=== PATIENT | female | born 1990 | race Caucasian/White ===

== ENCOUNTER 2016-12-22 13:52 | Inpatient (IN) | payer BC ==
[2016-12-22] MEDS ORDERED: SODIUM CHLORIDE 0.9% 1,000 ML IV STA ×2 (14:50)
--- NOTE | 2016-12-22 14:56 | ED ---
General Adult HPI - General Chief complaint: Abdominal Pain Stated complaint: Abnormal CT Time Seen by Provider: 12/22/16 14:21 Source: patient, RN notes reviewed, old records reviewed Mode of arrival: ambulatory Limitations: no limitations - History of Present Illness Initial comments: This is a 26-year-old female to the ER for evaluation of dull pain. Episode of developing but worsening since yesterday. Left upper quadrant abdominal pain radiating into her groin, since surrounding pressure. Patient does have history of GI issues including some occasional bowel pain with nausea, history of H. pylori ulcer. No prior history of surgery no scope and no prior issues with . Patient has no fevers, no change in bowel or bladder issues. - Related Data Home Medications Medication Instructions Recorded Confirmed Enskyce 1 tab PO DAILY 12/22/16 12/22/16 Allergies Allergy/AdvReac Type Severity Reaction Status Date / Time No Known Allergies Allergy Verified 12/22/16 14:54 Review of Systems ROS Statement: Those systems with pertinent positive or pertinent negative responses have been documented in the HPI. ROS Other: All systems not noted in ROS Statement are negative. Past Medical History Past Medical History: No Reported History History of Any Multi-Drug Resistant Organisms: None Reported Past Surgical History: No Surgical Hx Reported Past Psychological History: No Psychological Hx Reported Smoking Status: Never smoker Past Alcohol Use History: None Reported Past Drug Use History: None Reported General Exam Limitations: no limitations General appearance: alert, in no apparent distress Head exam: Present: atraumatic, normocephalic, normal inspection Eye exam: Present: normal appearance, PERRL, EOMI. Absent: scleral icterus, conjunctival injection, periorbital swelling ENT exam: Present: normal exam, mucous membranes moist Neck exam: Present: normal inspection. Absent: tenderness, meningismus, lymphadenopathy Respiratory exam: Present: normal lung sounds bilaterally. Absent: respiratory distress, wheezes, rales, rhonchi, stridor Cardiovascular Exam: Present: regular rate, normal rhythm, normal heart sounds. Absent: systolic murmur, diastolic murmur, rubs, gallop, clicks GI/Abdominal exam: Present: soft, normal bowel sounds. Absent: distended, tenderness, guarding, rebound, rigid Extremities exam: Present: normal inspection, full ROM, normal capillary refill. Absent: tenderness, pedal edema, joint swelling, calf tenderness Back exam: Present: normal inspection Neurological exam: Present: alert, oriented X3, CN II-XII intact Psychiatric exam: Present: normal affect, normal mood Skin exam: Present: warm, dry, intact, normal color. Absent: rash Course Vital Signs 12/22/16 12/22/16 12/22/16 14:10 15:09 16:33 Temperature 97.7 F Pulse Rate 98 112 H 82 Respiratory 18 16 16 Rate Blood Pressure 146/82 134/89 128/82 O2 Sat by Pulse 98 99 99 Oximetry - Reevaluation(s) Reevaluation #1: 12/22/16 14:56 Outpatient CAT scan is reviewed Reevaluation #2: 12/22/16 17:54 Surgery spoke with, pain is controlled Medical Decision Making - Medical Decision Making 26 female ER for evaluation of chronic acute on chronic about pain. Positive CT for intussusception, seen and evaluated emergency room and will go to operating room for evaluation and management - Lab Data Result diagrams: 12/22/16 15:05 12/22/16 15:05 Lab Results 12/22/16 12/22/16 12/22/16 Range/Units 15:05 15:05 15:05 WBC 7.5 (3.8-10.6) k/uL RBC 4.70 (3.80-5.40) m/uL Hgb 14.5 (11.4-16.0) gm/dL Hct 40.9 (34.0-46.0) % MCV 87.0 (80.0-100.0) fL MCH 30.8 (25.0-35.0) pg MCHC 35.4 (31.0-37.0) g/dL RDW 12.3 (11.5-15.5) % Plt Count 289 (150-450) k/uL Neutrophils % 76 % Lymphocytes % 17 % Monocytes % 5 % Eosinophils % 1 % Basophils % 0 % Neutrophils # 5.7 (1.3-7.7) k/uL Lymphocytes # 1.3 (1.0-4.8) k/uL Monocytes # 0.3 (0-1.0) k/uL Eosinophils # 0.1 (0-0.7) k/uL Basophils # 0.0 (0-0.2) k/uL PT (9.0-12.0) sec INR (<1.2) APTT (22.0-30.0) sec Sodium 139 (137-145) mmol/L Potassium 4.3 (3.5-5.1) mmol/L Chloride 103 (98-107) mmol/L Carbon Dioxide 24 (22-30) mmol/L Anion Gap 12 mmol/L BUN 10 (7-17) mg/dL Creatinine 0.70 (0.52-1.04) mg/dL Est GFR (MDRD) Af Amer >60 (>60 ml/min/1.73 sqM) Est GFR (MDRD) Non-Af >60 (>60 ml/min/1.73 sqM) Glucose 84 (74-99) mg/dL Plasma Lactic Acid Richard (0.7-2.0) mmol/L Calcium 9.6 (8.4-10.2) mg/dL Total Bilirubin 0.7 (0.2-1.3) mg/dL AST 22 (14-36) U/L ALT 32 (9-52) U/L Alkaline Phosphatase 62 (38-126) U/L Total Protein 7.9 (6.3-8.2) g/dL Albumin 4.4 (3.5-5.0) g/dL Amylase 67 (30-110) U/L Lipase 111 (23-300) U/L Urine Color Urine Appearance (Clear) Urine pH (5.0-8.0) Ur Specific Deputy (1.001-1.035) Urine Protein (Negative) Urine Glucose (UA) (Negative) Urine Ketones (Negative) Urine Blood (Negative) Urine Nitrite (Negative) Urine Bilirubin (Negative) Urine Urobilinogen (<2.0) mg/dL Ur Leukocyte Esterase (Negative) Urine HCG, Qual Not Detected (Not Detectd) 12/22/16 12/22/16 12/22/16 Range/Units 15:05 15:05 15:05 WBC (3.8-10.6) k/uL RBC (3.80-5.40) m/uL Hgb (11.4-16.0) gm/dL Hct (34.0-46.0) % MCV (80.0-100.0) fL MCH (25.0-35.0) pg MCHC (31.0-37.0) g/dL RDW (11.5-15.5) % Plt Count (150-450) k/uL Neutrophils % % Lymphocytes % % Monocytes % % Eosinophils % % Basophils % % Neutrophils # (1.3-7.7) k/uL Lymphocytes # (1.0-4.8) k/uL Monocytes # (0-1.0) k/uL Eosinophils # (0-0.7) k/uL Basophils # (0-0.2) k/uL PT 10.2 (9.0-12.0) sec INR 1.0 (<1.2) APTT 23.2 (22.0-30.0) sec Sodium (137-145) mmol/L Potassium (3.5-5.1) mmol/L Chloride (98-107) mmol/L Carbon Dioxide (22-30) mmol/L Anion Gap mmol/L BUN (7-17) mg/dL Creatinine (0.52-1.04) mg/dL Est GFR (MDRD) Af Amer (>60 ml/min/1.73 sqM) Est GFR (MDRD) Non-Af (>60 ml/min/1.73 sqM) Glucose (74-99) mg/dL Plasma Lactic Acid Richard 1.2 (0.7-2.0) mmol/L Calcium (8.4-10.2) mg/dL Total Bilirubin (0.2-1.3) mg/dL AST (14-36) U/L ALT (9-52) U/L Alkaline Phosphatase (38-126) U/L Total Protein (6.3-8.2) g/dL Albumin (3.5-5.0) g/dL Amylase (30-110) U/L Lipase (23-300) U/L Urine Color Colorless Urine Appearance Clear (Clear) Urine pH 7.5 (5.0-8.0) Ur Specific Deputy 1.024 (1.001-1.035) Urine Protein Negative (Negative) Urine Glucose (UA) Negative (Negative) Urine Ketones Trace H (Negative) Urine Blood Negative (Negative) Urine Nitrite Negative (Negative) Urine Bilirubin Negative (Negative) Urine Urobilinogen <2.0 (<2.0) mg/dL Ur Leukocyte Esterase Negative (Negative) Urine HCG, Qual (Not Detectd) - Radiology Data Radiology results: report reviewed (Computed tomography scan of pelvis positive for ecchymosis option) Disposition Clinical Impression: Abdominal pain, Intussusception Disposition: ADMITTED IP TO THIS [facility] Condition: Fair Referrals: Destiney George MD [Primary Care Provider] - 1-2 days
[2016-12-22] MEDS ORDERED: MORPHINE SULFATE 4 MG/ML SYRINGE IVP STA (14:57)
[2016-12-22 15:20] LABS: Appearance,Urine Clear (Clear); Bilirubin,Urine Negative (Negative); Glucose,Urine (UA) Negative (Negative); Ketones,Urine Trace (Negative); Leukocyte Esterase,Urine Negative (Negative); Nitrite,Urine Negative (Negative); PH, Urine 7.5 (5.0-8.0); Protein,Urine Negative (Negative); Specific Gravity,Urine 1.024 (1.001-1.035); UA Billing (MACRO vs. MICRO) CHEM; Urobilinogen,Urine <2.0 mg/dL (<2.0)
[2016-12-22 15:27] LABS: ALT 32 U/L (9-52); AST 22 U/L (14-36); Alkaline Phosphatase 62 U/L (38-126); Amylase 67 U/L (30-110); Anion Gap 12 mmol/L; Basophils % (A) 0 %; Blood Urea Nitrogen 10 mg/dL (7-17); CH 30.1; CHCM 34.7; Calcium 9.6 mg/dL (8.4-10.2); Carbon Dioxide 24 mmol/L (22-30); Chloride 103 mmol/L (98-107); Eosinophils # (A) 0.1 k/uL (0-0.7); Eosinophils % (A) 1 %; Glucose 84 mg/dL (74-99); HCT 40.9 % (34.0-46.0); HDW 2.33; HGB 14.5 gm/dL (11.4-16.0); Luc % (Auto) 1; Lymphocytes # (A) 1.3 k/uL (1.0-4.8); Lymphocytes % (A) 17 %; MCH 30.8 pg (25.0-35.0); MCHC 35.4 g/dL (31.0-37.0); Monocytes # (A) 0.3 k/uL (0-1.0); Monocytes % (A) 5 %; Neutrophils # (A) 5.7 k/uL (1.3-7.7); Neutrophils % (A) 76 %; Non-African American GFR(MDRD) >60 (>60 ml/min/1.73 sqM); Potassium 4.3 mmol/L (3.5-5.1); RDW 12.3 % (11.5-15.5); Sodium 139 mmol/L (137-145); Total Bilirubin 0.7 mg/dL (0.2-1.3); Total Protein 7.9 g/dL (6.3-8.2); WBC 7.5 k/uL (3.8-10.6)
[2016-12-22 15:31] LABS: Partial Thromboplastin Time 23.2 sec (22.0-30.0); Prothrombin Time 10.2 sec (9.0-12.0)
--- NOTE | 2016-12-22 17:35 | P.GSHP ---
History of Present Illness H&P Date: 12/22/16 Chief Complaint: Abdominal pain Patient is a 26-year-old white female who presents to the emergency room following a CAT scan which showed a small segment of small bowel to small bowel intussusception. The patient states that she has had approximately 3 week history of intermittent abdominal discomfort. She saw her primary care physician who ordered a CAT scan abdomen through to come to the emergency room. Her pain is been intermittent and lower mid abdomen radiating to the back. She has had nausea and vomiting. She has had no blood when she vomited she has had bowel movements but is not passing flatus. Denies diarrhea or constipation. The pain today is crampy in nature. This all lower mid abdomen. She complains of nausea and vomiting, no diarrhea or constipation. The location of the pain is lower mid abdomen with radiation to the back and has been present intermittently for 3 weeks. It is worse today. The patient ate last yesterday, however she did have contrast for a CAT scan today. Past surgical history: Negative Past medical history: Abdominal pain. She had an EGD and ultrasound approximately a year ago no definitive diagnosis was made Medications: control pills Last menstrual period: December 12 Social history: Smoking: Negative Alcohol: Negative Patient is had no pregnancies Review of systems: HEENT: Negative Lungs: Negative Heart: Negative GI: As above : UTI's - Constitutional Constitutional: Reports as per HPI - Cardiovascular Cardiovascular: Reports as per HPI - Respiratory Respiratory: Reports as per HPI - Genitourinary (Female) Genitourinary: Reports as per HPI - Genitourinary (Male) Genitourinary: Reports as per HPI Past Medical History Past Medical History: No Reported History History of Any Multi-Drug Resistant Organisms: None Reported Past Surgical History: No Surgical Hx Reported Past Psychological History: No Psychological Hx Reported Smoking Status: Never smoker Past Alcohol Use History: None Reported Past Drug Use History: None Reported Medications and Allergies Home Medications Medication Instructions Recorded Confirmed Type Enskyce 1 tab PO DAILY 12/22/16 12/22/16 History Allergies Allergy/AdvReac Type Severity Reaction Status Date / Time No Known Allergies Allergy Verified 12/22/16 14:54 Surgical - Exam Vital Signs Temp Pulse Resp BP Pulse Ox 97.7 F 98 18 146/82 98 12/22/16 14:10 12/22/16 14:10 12/22/16 14:10 12/22/16 14:10 12/22/16 14:10 - General well developed, well nourished, moderate distress - Eyes normal ocular movement - ENT normal pinna, normal nares, no hearing loss - Neck no masses, trachea midline, no lymphadectomy, no venous distension - Respiratory normal expansion, normal respiratory effort, clear to auscultation - Cardiovascular Rhythm: regular Heart Sounds: normal: S1, S2 - Abdomen Tenderness greatest lower midabdomen Some voluntary guarding Positive rebound tenderness Abdomen: tender, bowel sounds Hernia: none - Integumentary Piercings anterior abdominal wall - Neurologic normal coordination - Psychiatric oriented to time, oriented to place Results - Labs 12/22/16 15:05 12/22/16 15:05 Abnormal Lab Results - Last 24 Hours (Table) 12/22/16 Range/Units 15:05 Urine Ketones Trace H (Negative) Diabetes panel 12/22/16 Range/Units 15:05 Sodium 139 (137-145) mmol/L Potassium 4.3 (3.5-5.1) mmol/L Chloride 103 (98-107) mmol/L Carbon Dioxide 24 (22-30) mmol/L BUN 10 (7-17) mg/dL Creatinine 0.70 (0.52-1.04) mg/dL Glucose 84 (74-99) mg/dL Calcium 9.6 (8.4-10.2) mg/dL AST 22 (14-36) U/L ALT 32 (9-52) U/L Alkaline Phosphatase 62 (38-126) U/L Total Protein 7.9 (6.3-8.2) g/dL Albumin 4.4 (3.5-5.0) g/dL Calcium panel 12/22/16 Range/Units 15:05 Calcium 9.6 (8.4-10.2) mg/dL Albumin 4.4 (3.5-5.0) g/dL Pituitary panel 12/22/16 Range/Units 15:05 Sodium 139 (137-145) mmol/L Potassium 4.3 (3.5-5.1) mmol/L Chloride 103 (98-107) mmol/L Carbon Dioxide 24 (22-30) mmol/L BUN 10 (7-17) mg/dL Creatinine 0.70 (0.52-1.04) mg/dL Glucose 84 (74-99) mg/dL Calcium 9.6 (8.4-10.2) mg/dL Adrenal panel 12/22/16 Range/Units 15:05 Sodium 139 (137-145) mmol/L Potassium 4.3 (3.5-5.1) mmol/L Chloride 103 (98-107) mmol/L Carbon Dioxide 24 (22-30) mmol/L BUN 10 (7-17) mg/dL Creatinine 0.70 (0.52-1.04) mg/dL Glucose 84 (74-99) mg/dL Calcium 9.6 (8.4-10.2) mg/dL Total Bilirubin 0.7 (0.2-1.3) mg/dL AST 22 (14-36) U/L ALT 32 (9-52) U/L Alkaline Phosphatase 62 (38-126) U/L Total Protein 7.9 (6.3-8.2) g/dL Albumin 4.4 (3.5-5.0) g/dL - Imaging CT scan - abdomen: report reviewed, image reviewed CT scan - pelvis: report reviewed, image reviewed Assessment and Plan Plan: Impression/plan: 1. 26-year-old white female with intermittent chronic abdominal pain 2. Small bowel into small bowel short segmental focal intussusception lower abdomen and pelvis just left of midline finding could be transient underlying mass is not excluded Plan: 1. Have discussed surgical intervention with the patient, she understands risks and benefits and wishes to proceed.
[2016-12-22] MEDS ORDERED: HEPARIN SODIUM,PORCINE 5,000 UNIT/ML 1 ML VIAL SQ ONE (17:37)
[2016-12-22] MEDS ORDERED: ceFAZolin 1,000 MG in DEXTROSE/WATER 1 50ML.BAG IVPB STA (17:42)
[2016-12-22] MEDS ORDERED: SODIUM CHLORIDE 0.9% 1,000 ML IV ONE (17:52)
[2016-12-22] MEDS ORDERED: LIDOCAINE 1% 20 ML VIAL (10MG/ML) FOR IV START INTRADERMA PRN (18:10)
[2016-12-22] MEDS ORDERED: ONDANSETRON 4 MG/2 ML VIAL IVP PRN ×2 (18:10→21:00)
[2016-12-22] MEDS ORDERED: IV FLUID CONTINUATION 1,000 ML IV ONE (18:47)
[2016-12-22] MEDS ORDERED: SUCCINYLCHOLINE CHLORIDE 100 MG/5 ML SYR IV ONE (19:06)
[2016-12-22] MEDS ORDERED: KETOROLAC 30 MG/ML 1 ML VIAL ONE (19:06)
[2016-12-22] MEDS ORDERED: MIDAZOLAM 2 MG/2 ML VIAL ONE (19:06)
[2016-12-22] MEDS ORDERED: GLYCOPYRROLATE 0.2 MG/ML 2 ML VIAL ONE (19:06)
[2016-12-22] MEDS ORDERED: PROPOFOL 10 MG/ML 20 ML VIAL IV ONE (19:06)
[2016-12-22] MEDS ORDERED: LIDOCAINE 1% INJ 10MG/ML (20 ML MDV) ONE (19:06)
[2016-12-22] MEDS ORDERED: fentaNYL (PF) 50 MCG/ML 2 ML AMP ONE (19:06)
[2016-12-22] MEDS ORDERED: NEOSTIGMINE 1 MG/ML 10 ML VIAL ONE (19:06)
[2016-12-22] MEDS ORDERED: HYDROmorphone (PF) 1 MG/ML ONE (19:06)
[2016-12-22] MEDS ORDERED: ROCURONIUM BROMIDE 10 MG/ML 10 ML VIAL IV ONE (19:06)
[2016-12-22] MEDS ORDERED: LIDOCAINE 1% INJ 10MG/ML (20 ML MDV) SQ ONE (19:36)
[2016-12-22] MEDS ORDERED: LACTATED RINGERS 1,000 ML IV ONE ×3 (19:43→21:34)
--- NOTE | 2016-12-22 20:59 | P.OP ---
Date of Procedure: 12/22/16 Preoperative Diagnosis: Small bowel intussusception Postoperative Diagnosis: Reduced small bowel intussusception Procedure(s) Performed: Laparoscopic examination, laparotomy Implants: Anesthesia: JESSE Surgeon: Reva Wall Agricultural Extension Specialist #1: Armani Arora Estimated Blood Loss (ml): 30 IV fluids (ml): 1,700 Pathology: none sent Condition: stable Disposition: PACU Indications for Procedure: Symptomatic small bowel intussusception Operative Findings: Spontaneous reduction of small bowel intussusception, no lead point palpated Description of Procedure: Patient was taken to the operating room and following induction of general anesthesia the abdomen was prepped and draped in a sterile fashion. The Veress needle was placed in the left upper quadrant. The abdomen was insufflated to 15 mmHg pressure. #5 Optiview scope was then placed in the left upper quadrant. The patient was placed in Trendelenburg and 3 #5 ports were placed in the right lateral abdomen. The camera was moved to one of the #5 ports and through the left upper quadrant #5 port and the right lower quadrant #5 port the small bowel was run. The small bowel was run from the area of the cecum proximally to the ligament of Treitz. There was noted to be an area where the small bowel was dilated and then transition to a smaller caliber of bowel. However no discrete intussusception was identified. The bowel was then run from the ligament of Treitz distally to the cecum. Again no definite intussusception was identified. Despite this an area of transition was identified and there was a question as to whether this had been the area of intussusception. Therefore a small incision was made in the periumbilical area and the small bowel was elevated at this site. Upon visual inspection of the small bowel no definite leak point could be identified. Likewise we could not confirm that this was the area of intussusception. The incision was extended slightly and the small bowel was run manually from the ligament of Treitz to the area of the cecum. Although there was a transition area of small small bowel to more dilated bowel no palpable abnormality was identified and no definite area of intussusception was seen. Therefore, after intraoperative discussion with determined we would not resect any small bowel. Additionally visual inspection of the peritoneal cavity revealed a questionable small hernia of the direct type in the right lower quadrant. The trochars were removed. The periumbilical incision was closed using double-stranded PDS. The skin at all sites was closed with 4-0 Monocryl. Patient tolerated the procedure in stable condition. All instrument and sponge counts were correct at the end of the case. The impression is that the patient had spontaneous reduction of a small bowel intussusception. The patient will be recommended to undergo small bowel enterography postoperatively.
[2016-12-22] MEDS ORDERED: NALOXONE 0.4 MG/ML 1 ML VIAL IV PRN (21:00)
[2016-12-22] MEDS ORDERED: HYDROcodone/APAP 5-325MG 1 EACH TAB PO PRN (21:00)
[2016-12-22] MEDS ORDERED: ONDANSETRON 4 MG/2 ML VIAL IVP ONE (21:03)
[2016-12-22] MEDS: HYDROmorphone 1 MG/ML 1 ML SYRINGE IVP PRN ×2 (21:17→21:24)
[2016-12-22] MEDS: FAMOTIDINE 20 MG TAB PO SCH (22:39)
[2016-12-23] MEDS: HYDROmorphone 1 MG/ML 1 ML SYRINGE IV PRN ×7 (00:21→19:43)
[2016-12-23] MEDS: HEPARIN SODIUM,PORCINE 5,000 UNIT/ML 1 ML VIAL SQ SCH ×3 (00:22→16:58)
[2016-12-23] MEDS: DEXTROSE 5%-0.45% NACL 1,000 ML IV SCH ×3 (04:38→14:20)
[2016-12-23 05:20] VITALS: BMI 24.1
--- NOTE | 2016-12-23 08:43 | P.PN ---
Subjective 26-year-old female being seen with the attending this morning. Sitting up in bed. Taking a clear liquid diet and tolerating Reports pain medication effective for pain control. Patient is postop laparoscopic examination, laparotomy for a small bowel symptomatic small bowel intussusception. Operative findings showed spontaneous reduction of a small bowel intussusception 26-year-old female presented to the emergency room following a CAT scan which showed a small segment of small bowel to small bowel intussusception. Patient stated that the pain had been intermittent for the last 3 weeks. Patient states she saw her primary physician who did order the CAT scan of the abdomen and was told to come to the emergency room. Pain continued to be intermittent lower abdominal breathing to the back crampy in nature. Patient also reported experiencing intermittent episodes of nausea vomiting no change in bowel constipation or diarrhea. The pain was located in the lower midabdomen. Subsequently the patient was seen in the emergency room with request for a surgical eval patient was admitted to the services of the attending Objective - Vital Signs Vital signs: Vital Signs Temp 98.1 F 12/23/16 03:30 Pulse 82 12/23/16 03:30 Resp 18 12/23/16 03:30 BP 110/59 12/23/16 03:30 Pulse Ox 97 12/23/16 03:30 Intake & Output 12/22/16 12/23/16 12/23/16 18:59 06:59 18:59 Intake Total 3110 Output Total 170 Balance 2940 Weight 65.771 kg 65.77 kg Intake: IV 3070 Lactated Ringers 1,000 ml 920 As IV .K-MED ONE Rx#: [id number] Oral 40 Output: Urine 150 Estimated Blood Loss 20 - Exam Physical exam Pleasant 26-year-old female sitting up in bed oriented 3 Lungs essentially clear adequate air movement on room air no shortness of breath Heart S1-S2 audible and regular Abdomen dressings to the surgical site dry slight surgical pain bowel tones present no reports of nausea vomiting Extremities no edema noted - Labs CBC & Chem 7: 12/22/16 15:05 12/22/16 15:05 Labs: Abnormal Lab Results - Last 24 Hours (Table) 12/22/16 Range/Units 15:05 Urine Ketones Trace H (Negative) Microbiology - Last 24 Hours (Table) 12/22/16 15:05 Urine Culture - Preliminary Urine,Voided Assessment and Plan Plan: Impression Present on admission persistent intermittent abdominal pain suspect due to small bowel intussusception status post December 22 laparoscopic, examination, laparotomy for symptomatic small bowel intussusception with spontaneous reduction of small bowel intussception CAT scan abdomen and pelvis done on admission showed small bowel to small bowel intussusception Plan Pain control IV fluid as ordered Advance diet as tolerated Increase activity Prepped for probable discharge in the next 24 hours DVT and GI prophylaxis The above impression and plan of care have been discussed and directed by signing physician. Rebecca Aguilar nurse practitioner acting as scribe for signing physician.
[2016-12-23] MEDS: FAMOTIDINE 20 MG TAB PO SCH ×2 (09:32→22:31)
[2016-12-23] MEDS: ACETAMINOPHEN IV (For NPO) 1,000 MG in EMPTY BAG 1 BAG IVPB SCH (21:48)
[2016-12-24] MEDS: HYDROmorphone 1 MG/ML 1 ML SYRINGE IV PRN (00:38)
[2016-12-24] MEDS: ACETAMINOPHEN IV (For NPO) 1,000 MG in EMPTY BAG 1 BAG IVPB SCH ×3 (00:47→12:59)
[2016-12-24] MEDS: DEXTROSE 5%-0.45% NACL 1,000 ML IV SCH ×2 (00:48→08:41)
[2016-12-24] MEDS: HEPARIN SODIUM,PORCINE 5,000 UNIT/ML 1 ML VIAL SQ SCH ×2 (00:48→08:42)
[2016-12-24] MEDS: FAMOTIDINE 20 MG TAB PO SCH (08:42)
[2016-12-24 09:03] VITALS: BP 131/80; PULSE 89; RESP 16; TEMP 98.9
--- NOTE | 2016-12-24 11:58 | P.DS ---
Providers Date of admission: 12/22/16 17:52 Expected date of discharge: 12/24/16 Attending physician: Reva Wall Primary care physician: [facility] Course: 26-year-old female presented to the emergency room following a CAT scan which showed a small segment of small bowel to small bowel intussusception. Patient stated that the pain had been intermittent for the last 3 weeks. Patient states she saw her primary physician who did order the CAT scan of the abdomen and was told to come to the emergency room. Pain continued to be intermittent lower abdominal breathing to the back crampy in nature. Patient also reported experiencing intermittent episodes of nausea vomiting no change in bowel constipation or diarrhea. The pain was located in the lower midabdomen. Subsequently the patient was seen in the emergency room with request for a surgical eval patient was admitted to the services of the attending. The patient did undergo laparoscopic examination, laparotomy for a small bowel symptomatic small bowel intussusception. Operative findings showed spontaneous reduction of a small bowel intussusception the procedure was done on December 22. Postop there were no events. Patient was able to ambulate in the hallway passing gas rectally urinating no difficulty no reports of nausea vomiting and diet was able to be advanced. Patient was felt to be hemodynamically stable and appropriate proceed with a discharge to home Patient does give a history of having chronic nausea sensation for at least several years states that she has been worked up in the past has had a gastric emptying study done which was unremarkable has not had any unintentional weight loss. Additionally patient states that she has had an EGD done as well there is been no acute findings. Patient was able to tolerate a diet with no emesis -Impression Present on admission persistent intermittent abdominal pain suspect due to small bowel intussusception status post December 22 laparoscopic, examination, laparotomy for symptomatic small bowel intussusception with spontaneous reduction of small bowel intussception CAT scan abdomen and pelvis done on admission showed small bowel to small bowel intussusception The above impression and plan of care have been discussed and directed by signing physician. Rebecca Aguilar nurse practitioner acting as scribe for signing physician. Patient Condition at Discharge: Fair Plan - Discharge Summary New Discharge Prescriptions: New HYDROcodone/APAP 5-325MG [[place] 5-325] 1 each PO Q4HR PRN #15 tab PRN Reason: Moderate Pain Ondansetron HCl [Zofran] 4 mg PO Q6HR PRN #15 tablet PRN Reason: Nausea Ondansetron HCl [Zofran] 4 mg PO Q6HR #15 tablet Continue Enskyce 1 tab PO DAILY Discharge Medication List Enskyce 1 tab PO DAILY 12/22/16 [History] HYDROcodone/APAP 5-325MG [[place] 5-325] 1 each PO Q4HR PRN #15 tab 12/24/16 [Rx] Ondansetron HCl [Zofran] 4 mg PO Q6HR #15 tablet 12/24/16 [Rx] Ondansetron HCl [Zofran] 4 mg PO Q6HR PRN #15 tablet 12/24/16 [Rx] Follow up Appointment(s)/Referral(s): Destiney George MD [Primary Care Provider] - 1-2 days Reva Wall MD [STAFF PHYSICIAN] - 12/30/16 Activity/Diet/Wound Care/Special Instructions: No lifting over 10 pounds May return to work after seen in a follow-up visit with surgical service in one week May shower No sitting in a hot tub, tub or swimming pool for at least a week no submersion in water for at least a week Discharge Disposition: HOME SELF-CARE
== END 2016-12-24 13:59 | disposition home or self-care (01) | DRG 358 ==
LOC: EC 13:52 → 6PED 17:52
PROVIDERS: ADMIT Surgery; ATTEND Surgery
PROC: 0WJP0ZZ Inspection of Gastrointestinal Tract, Open Approach (ICD-10-PCS; principal; 2016-12-22 19:00)
DX: K56.1 Intussusception (principal); G89.29 Other chronic pain; R11.2 Nausea with vomiting, unspecified; K40.90 Unilateral inguinal hernia, without obstruction or gangrene, not specified as recurrent; Z79.3 Long term (current) use of hormonal contraceptives; Z87.19 Personal history of other diseases of the digestive system; Z87.11 Personal history of peptic ulcer disease; Z86.19 Personal history of other infectious and parasitic diseases; Z53.31 Laparoscopic surgical procedure converted to open procedure
CPT/HCPCS: 36415; 80053; 81003; 81025; 82150; 83605; 83690; 85025; 85610; 85730; 87086; 99285

== ENCOUNTER → 2016-12-22 | Outpatient (CLI) | payer BC ==
--- NOTE | 2016-12-22 13:49 | CT ---
EXAMINATION TYPE: CT abdomen pelvis w con DATE OF EXAM: 12/22/2016 HISTORY: Pelvic pain cramping, back pain CT DLP: 490.6mGycm Automated Exposure Control for Dose Reduction was Utilized. CONTRAST: CT scan of the abdomen and pelvis is performed with IV Contrast, patient injected with 100 mL of Omni paque 300. COMPARISON: None. FINDINGS: LUNG BASES: No significant abnormality is appreciated. LIVER/GB: No significant abnormality is appreciated. PANCREAS: No significant abnormality is seen. SPLEEN: No significant abnormality is seen. ADRENALS: No significant abnormality is seen. KIDNEYS: No significant abnormality is seen. BOWEL: Oral contrast reaches level of rectum. There is no suspicious small or large bowel dilatation. Normal contrast-filled appendix is seen descending from cecum. There is small bowel on small bowel i ntussusception seen in the lower abdomen/upper pelvis just left of midline on axial image 54 and bony nal image 28. Etiology uncertain as no obvious intraluminal or mesenteric mass or adenopathy identifi ed. UTERUS/ADNEXA: Uterus is anteverted in shape and within normal limits in size. No suspicious adnexal masses are seen. No concerning pelvic fluid collection is noted. LYMPH NODES: No greater than 1cm abdominal or pelvic lymph nodes are appreciated. OSSEOUS STRUCTURES: No significant abnormality is seen. OTHER: No significant additional abnormality is seen. IMPRESSION: There is small bowel into small bowel short segment focal intussusception lower abdomen/u pper pelvis just left of midline, finding could be transient, underlying mass is not excluded. Consid er GI and/or surgical follow-up. Results communicated to ordering nurse practitioner via telephone who was going to discussed with ciara sician if further urgent management is necessary.
== END | disposition home or self-care (01) ==
LOC: RADCTMAIN 11:26
DX: R10.31 Right lower quadrant pain (principal); R10.9 Unspecified abdominal pain
CPT/HCPCS: 74177; Q9967

== ENCOUNTER → 2017-01-04 | Outpatient (CLI) | payer BC ==
--- NOTE | 2017-01-04 09:41 | FL ---
EXAMINATION TYPE: FL small bowel follow through DATE OF EXAM: 01/04/2017 9:30 AM COMPARISON: NONE HISTORY: History of intussusception The patient ingested thin liquid barium without difficulty. Small bowel follow-through was performed with transit time of 50 minutes. Small bowel loops appear to be of normal caliber and demonstrate n ormal mucosal fold pattern. No evidence for intrinsic or extrinsic mass. No evidence for mucosal ab normality. I do not see evidence for Crohn's disease. Normal-appearing terminal ileum. IMPRESSION: No evidence for recurrent intussusception or small bowel obstruction at this time.
== END | disposition home or self-care (01) ==
LOC: RADFLMAIN 07:44
PROVIDERS: ATTEND Surgery
DX: K56.1 Intussusception (principal)
CPT/HCPCS: 74250

== ENCOUNTER 2018-08-19 12:32 | Emergency (ER) | payer OTHER ==
[2018-08-19 12:41] VITALS: TEMP 98
[2018-08-19] MEDS ORDERED: ACETAMINOPHEN TAB 500 MG TAB PO STA (12:46)
[2018-08-19] MEDS ORDERED: SODIUM CHLORIDE 0.9% 1,000 ML IV STA (12:46)
[2018-08-19 13:16] LABS: Appearance,Urine Clear (Clear); Basophils % (A) 0 %; Bilirubin,Urine Negative (Negative); Blood,Urine Negative (Negative); Color,Urine Yellow; Eosinophils # (A) 0.2 k/uL (0-0.7); Eosinophils % (A) 3 %; Glucose,Urine (UA) Negative (Negative); HCT 39.3 % (34.0-46.0); HGB 13.7 gm/dL (11.4-16.0); Ketones,Urine Trace (Negative); Leukocyte Esterase,Urine Negative (Negative); Lymphocytes # (A) 1.4 k/uL (1.0-4.8); Lymphocytes % (A) 15 %; MCH 30.9 pg (25.0-35.0); MCHC 34.9 g/dL (31.0-37.0); MCV 88.6 fL (80.0-100.0); Mean Platelet Volume 6.7; Monocytes # (A) 0.5 k/uL (0-1.0); Monocytes % (A) 6 %; Neutrophils # (A) 7.1 k/uL (1.3-7.7); Neutrophils % (A) 75 %; Nitrite,Urine Negative (Negative); Platelet Count 274 k/uL (150-450); Protein,Urine Trace (Negative); RBC 4.44 m/uL (3.80-5.40); RDW 13.3 % (11.5-15.5); Specific Gravity,Urine 1.028 (1.001-1.035); Urobilinogen,Urine <2.0 mg/dL (<2.0); WBC 9.5 k/uL (3.8-10.6)
[2018-08-19 13:25] LABS: ALT 20 U/L (9-52); AST 18 U/L (14-36); Albumin 4.1 g/dL (3.5-5.0); Alkaline Phosphatase 52 U/L (38-126); Amylase 65 U/L (30-110); Anion Gap 11 mmol/L; Blood Urea Nitrogen 9 mg/dL (7-17); Calcium 9.7 mg/dL (8.4-10.2); Carbon Dioxide 21 mmol/L (22-30); Chloride 106 mmol/L (98-107); Glucose 83 mg/dL (74-99); Lipase 87 U/L (23-300); Sodium 138 mmol/L (137-145); Total Bilirubin 0.5 mg/dL (0.2-1.3); Total Protein 7.6 g/dL (6.3-8.2)
--- NOTE | 2018-08-19 13:35 | ED ---
Pediatric GI HPI - General Chief Complaint: Abdominal Pain Stated Complaint: abdominal pain/12 wks preg Time Seen by Provider: 08/19/18 12:45 Source: patient, RN notes reviewed Mode of arrival: ambulatory Limitations: no limitations - History of Present Illness Initial Comments: 28-year-old female presents to the emergency department for abdominal pain 2.5 days. Patient is currently 12 weeks and is a . Patient has a confirmed IUP. Patient saw her doctor Dr. George earlier today who recommended she come to the emergency department. Patient complains his pain as the pain in the upper abdomen that does sometimes radiate to her back. Patient denies any lower abdominal pain. Denies any vaginal bleeding. Patient states the pain is constant. Denies nausea or vomiting. Patient did produce a bowel movement this morning and is passing gas normally. Patient has a history of intussusception 2 years ago.Patient has no other complaints at this time including shortness of breath, chest pain, nausea or vomiting, headache, or visual changes. - Related Data Home Medications Medication Instructions Recorded Confirmed Pnv No.95/Ferrous Fum/Folic AC 1 tab PO HS 08/19/18 08/19/18 [ Multivitamin Tablet] Previous Rx's Medication Instructions Recorded Famotidine [Pepcid] 20 mg PO BID #14 tablet 08/19/18 Allergies Allergy/AdvReac Type Severity Reaction Status Date / Time No Known Allergies Allergy Verified 08/19/18 12:59 Review of Systems ROS Statement: Those systems with pertinent positive or pertinent negative responses have been documented in the HPI. ROS Other: All systems not noted in ROS Statement are negative. Past Medical History Past Medical History: No Reported History Additional Past Medical History / Comment(s): Intussusception History of Any Multi-Drug Resistant Organisms: None Reported Past Surgical History: No Surgical Hx Reported Past Psychological History: No Psychological Hx Reported Smoking Status: Never smoker Past Alcohol Use History: None Reported Past Drug Use History: None Reported - Past Family History Mother Family Medical History: Asthma, GERD/Reflux Additional Family Medical History / Comment(s): Mom has dumping syndrome. Maternal Grandma had type 2 diabetes and from bone cancer. Father Family Medical History: Hypertension Additional Family Medical History / Comment(s): Paternal grandma had kidney disease and from skin and breast cancer. General Exam Limitations: no limitations General appearance: alert, in no apparent distress Head exam: Present: atraumatic, normocephalic, normal inspection Eye exam: Present: normal appearance, PERRL, EOMI. Absent: scleral icterus, conjunctival injection, periorbital swelling ENT exam: Present: normal exam, mucous membranes moist Neck exam: Present: normal inspection, full ROM. Absent: tenderness, meningismus, lymphadenopathy Respiratory exam: Present: normal lung sounds bilaterally. Absent: respiratory distress, wheezes, rales, rhonchi, stridor Cardiovascular Exam: Present: regular rate, normal rhythm, normal heart sounds. Absent: systolic murmur, diastolic murmur, rubs, gallop, clicks GI/Abdominal exam: Present: soft, tenderness (tenderness noted in the upper abdomen worse in the epigastric area but also present in the RUQ and LUQ, ), guarding (mild epigastric guarding), normal bowel sounds. Absent: distended, rebound, rigid Neurological exam: Present: alert, oriented X3, CN II-XII intact Psychiatric exam: Present: normal affect, normal mood Course Vital Signs 08/19/18 08/19/18 08/19/18 12:36 13:30 14:20 Temperature 98.0 F Pulse Rate 78 76 71 Respiratory 16 14 16 Rate Blood Pressure 136/85 119/76 117/70 O2 Sat by Pulse 100 100 100 Oximetry 08/19/18 16:12 Temperature Pulse Rate 88 Respiratory 16 Rate Blood Pressure 121/72 O2 Sat by Pulse 100 Oximetry Medical Decision Making - Medical Decision Making 28-year-old female presents to the emergency department for a chief complaint of abdominal pain in the upper abdomen. Patient is guarding in the epigastric region. CBC CMP are unremarkable. Urine negative for evidence of infection. Patient had a confirmed IUP 2 weeks ago, no pelvic pain, no vaginal bleeding. Ultrasound of the complete abdomen was ordered which showed no acute process. However they were not able to evaluate the bowel well. Due to patient's history of intussusception and abdominal pain with guarding one view x-ray of the abdomen was ordered as well as the chest. I did discuss this with patient prior and sure decision making was demonstrated. He says that with ultrasound we are unable to evaluate severe abdominal issues such as bowel obstruction or intussusception patient agrees that x-ray is warranted. X-ray of the chest showed no acute cardiopulmonary process. X-ray of the abdomen showed scattered gas in the nondistended stomach and small bowel. No pneumoperitoneum. No nobstructive bowel gas pattern. At this time I do not suspect emergent cause. Patient will be started on Pepcid. Patient can follow up outpatient primary care and [facility]. This case was discussed in detail with Dr. Jeter - Lab Data Result diagrams: 08/19/18 12:55 08/19/18 12:55 Lab Results 08/19/18 08/19/18 08/19/18 Range/Units 12:55 12:55 12:55 WBC 9.5 (3.8-10.6) k/uL RBC 4.44 (3.80-5.40) m/uL Hgb 13.7 (11.4-16.0) gm/dL Hct 39.3 (34.0-46.0) % MCV 88.6 (80.0-100.0) fL MCH 30.9 (25.0-35.0) pg MCHC 34.9 (31.0-37.0) g/dL RDW 13.3 (11.5-15.5) % Plt Count 274 (150-450) k/uL Neutrophils % 75 % Lymphocytes % 15 % Monocytes % 6 % Eosinophils % 3 % Basophils % 0 % Neutrophils # 7.1 (1.3-7.7) k/uL Lymphocytes # 1.4 (1.0-4.8) k/uL Monocytes # 0.5 (0-1.0) k/uL Eosinophils # 0.2 (0-0.7) k/uL Basophils # 0.0 (0-0.2) k/uL Sodium 138 (137-145) mmol/L Potassium 4.0 (3.5-5.1) mmol/L Chloride 106 (98-107) mmol/L Carbon Dioxide 21 L (22-30) mmol/L Anion Gap 11 mmol/L BUN 9 (7-17) mg/dL Creatinine 0.54 (0.52-1.04) mg/dL Est GFR (CKD-EPI)AfAm >90 (>60 ml/min/1.73 sqM) Est GFR (CKD-EPI)NonAf >90 (>60 ml/min/1.73 sqM) Glucose 83 (74-99) mg/dL Calcium 9.7 (8.4-10.2) mg/dL Total Bilirubin 0.5 (0.2-1.3) mg/dL AST 18 (14-36) U/L ALT 20 (9-52) U/L Alkaline Phosphatase 52 (38-126) U/L Total Protein 7.6 (6.3-8.2) g/dL Albumin 4.1 (3.5-5.0) g/dL Amylase 65 (30-110) U/L Lipase 87 (23-300) U/L HCG, Quant 908052.0 mIU/mL Urine Color Urine Appearance (Clear) Urine pH (5.0-8.0) Ur Specific [place] (1.001-1.035) Urine Protein (Negative) Urine Glucose (UA) (Negative) Urine Ketones (Negative) Urine Blood (Negative) Urine Nitrite (Negative) Urine Bilirubin (Negative) Urine Urobilinogen (<2.0) mg/dL Ur Leukocyte Esterase (Negative) Urine HCG, Qual Detected (Not Detectd) 08/19/18 Range/Units 12:55 WBC (3.8-10.6) k/uL RBC (3.80-5.40) m/uL Hgb (11.4-16.0) gm/dL Hct (34.0-46.0) % MCV (80.0-100.0) fL MCH (25.0-35.0) pg MCHC (31.0-37.0) g/dL RDW (11.5-15.5) % Plt Count (150-450) k/uL Neutrophils % % Lymphocytes % % Monocytes % % Eosinophils % % Basophils % % Neutrophils # (1.3-7.7) k/uL Lymphocytes # (1.0-4.8) k/uL Monocytes # (0-1.0) k/uL Eosinophils # (0-0.7) k/uL Basophils # (0-0.2) k/uL Sodium (137-145) mmol/L Potassium (3.5-5.1) mmol/L Chloride (98-107) mmol/L Carbon Dioxide (22-30) mmol/L Anion Gap mmol/L BUN (7-17) mg/dL Creatinine (0.52-1.04) mg/dL Est GFR (CKD-EPI)AfAm (>60 ml/min/1.73 sqM) Est GFR (CKD-EPI)NonAf (>60 ml/min/1.73 sqM) Glucose (74-99) mg/dL Calcium (8.4-10.2) mg/dL Total Bilirubin (0.2-1.3) mg/dL AST (14-36) U/L ALT (9-52) U/L Alkaline Phosphatase (38-126) U/L Total Protein (6.3-8.2) g/dL Albumin (3.5-5.0) g/dL Amylase (30-110) U/L Lipase (23-300) U/L HCG, Quant mIU/mL Urine Color Yellow Urine Appearance Clear (Clear) Urine pH 6.0 (5.0-8.0) Ur Specific [place] 1.028 (1.001-1.035) Urine Protein Trace H (Negative) Urine Glucose (UA) Negative (Negative) Urine Ketones Trace H (Negative) Urine Blood Negative (Negative) Urine Nitrite Negative (Negative) Urine Bilirubin Negative (Negative) Urine Urobilinogen <2.0 (<2.0) mg/dL Ur Leukocyte Esterase Negative (Negative) Urine HCG, Qual (Not Detectd) Disposition Clinical Impression: Abdominal pain Disposition: HOME SELF-CARE Condition: Good Instructions (If sedation given, give patient instructions): Abdominal Pain (ED), Abdominal Pain in (ED) Additional Instructions: Please take Tylenol for pain. Take Pepcid as directed. Follow-up with primary care in 1-2 days. Follow-up with [facility] as well. Return here to the emergency department if you have worsening symptoms. Prescriptions: Famotidine [Pepcid] 20 mg PO BID #14 tablet Is patient prescribed a controlled substance at d/c from ED?: No Referrals: Destiney George MD [Primary Care Provider] - 1-2 days Time of Disposition: 16:42
--- NOTE | 2018-08-19 15:11 | US ---
EXAMINATION TYPE: US abdomen complete DATE OF EXAM: 08/19/2018 COMPARISON: NONE CLINICAL HISTORY: upper abd pain . Epigastric pain for 2 days EXAM MEASUREMENTS: Liver Length: 14.3 cm Gallbladder Wall: 0.2 cm CBD: 0.4 cm Spleen: 9.4 cm Right Kidney: 11.9 x 3.9 x 4.2 cm Left Kidney: 11.1 x 4.5 x 4.7 cm Pancreas: wnl as visualized. Liver: wnl Gallbladder: no evidence of stones Evidence for sonographic Hendrix's sign: no CBD: wnl Spleen: wnl Right Kidney: wnl Left Kidney: wnl Upper IVC: wnl Abd Aorta: wnl The liver is homogenous. The intrahepatic portion of the IVC and proximal abdominal aorta are within normal limits. There is no evidence of cholelithiasis. Common bile duct is unremarkable. The visu alized portions of the pancreas are homogenous. The spleen is unremarkable. Kidneys are symmetric a nd free of hydronephrosis. No renal lesions are seen. IMPRESSION: 1. No acute process.
[2018-08-19 15:48] VITALS: RESP 16
--- NOTE | 2018-08-19 16:10 | XR ---
EXAMINATION TYPE: XR chest 2V DATE OF EXAM: 08/19/2018 COMPARISON: Chest x-ray from 1992. HISTORY: Chest pain and nausea. TECHNIQUE: Frontal and lateral views of the chest are obtained. FINDINGS: There is no focal air space opacity, pleural effusion, or pneumothorax seen. The cardiac silhouette size is within normal limits. The osseous structures are intact. IMPRESSION: No acute cardiopulmonary process.
[2018-08-19 16:12] VITALS: BP 121/72; PULSE 88
--- NOTE | 2018-08-19 16:12 | XR ---
EXAMINATION TYPE: XR KUB DATE OF EXAM: 08/19/2018 4:05 PM CLINICAL HISTORY: Upper abdominal pain and nausea TECHNIQUE: Two Upright KUB images of the abdomen are obtained. COMPARISON: CT abdomen and pelvis December 22, 2016. FINDINGS: Scattered gas is seen in non-distended stomach and small bowel loops. Gas and fecal materia l is seen in non-distended colon and rectum. There is redemonstration of metallic skin studs overlyin g the anterior pelvic wall in oblique orientation. No pneumoperitoneum is seen. Lung bases are clear. Osseous structures are intact. IMPRESSION: Overall nonobstructive bowel gas pattern.
== END 2018-08-19 17:09 | disposition home or self-care (01) ==
LOC: EC 12:32
DX: O26.891 Other specified pregnancy related conditions, first trimester (principal); R10.13 Epigastric pain; Z3A.12 12 weeks gestation of pregnancy
CPT/HCPCS: 36415; 71046; 74018; 76700; 80053; 81003; 81025; 82150; 83690; 84702; 85025; 96360; 99284

== ENCOUNTER 2019-02-05 18:39 | Inpatient (IN) | payer OTHER ==
[2019-02-05] MEDS ORDERED: OXYTOCIN 10 UNIT/ML 1 ML VIAL IM PRN (19:01)
[2019-02-05] MEDS ORDERED: TERBUTALINE 1 MG/ML VIAL SQ PRN (19:01)
[2019-02-05] MEDS ORDERED: CARBOPROST TROMETHAMINE 250 MCG/ML 1 ML AMP IM PRN (19:01)
[2019-02-05] MEDS ORDERED: METHYLERGONOVINE 0.2 MG/ML 1 ML AMP IM PRN (19:01)
[2019-02-05] MEDS ORDERED: LIDOCAINE 0.5% (PF) 5 MG/ML (50 ML SDV) SQ PRN (19:01)
[2019-02-05] MEDS ORDERED: BUTORPHANOL 1 MG/ML 1 ML VIAL IV PRN (19:02)
[2019-02-05] MEDS ORDERED: PENICILLIN G POTASSIUM 5,000,000 UNIT in DEXTROSE 5% IN WATER 100 ML IVPB STA ×2 (19:05)
[2019-02-05] MEDS ORDERED: OXYTOCIN 30 UNITS/500 ML NS 30 UNIT in SALINE 1 500ML.BAG IV SCH (19:15)
[2019-02-05] MEDS: LACTATED RINGERS 1,000 ML IV SCH (19:30)
[2019-02-05 19:37] VITALS: BMI 27.2
[2019-02-05 20:06] LABS: Basophils % (A) 0 %; Eosinophils # (A) 0.2 k/uL (0-0.7); Eosinophils % (A) 2 %; HCT 35.3 % (34.0-46.0); HGB 12.3 gm/dL (11.4-16.0); Lymphocytes # (A) 1.7 k/uL (1.0-4.8); Lymphocytes % (A) 17 %; MCH 30.2 pg (25.0-35.0); MCHC 34.8 g/dL (31.0-37.0); MCV 86.8 fL (80.0-100.0); Mean Platelet Volume 7.8; Monocytes # (A) 0.6 k/uL (0-1.0); Monocytes % (A) 6 %; Neutrophils # (A) 7.2 k/uL (1.3-7.7); Neutrophils % (A) 73 %; Platelet Count 327 k/uL (150-450); RBC 4.06 m/uL (3.80-5.40); RDW 14.1 % (11.5-15.5); WBC 9.9 k/uL (3.8-10.6)
[2019-02-05] MEDS ORDERED: ONDANSETRON 4 MG/2 ML VIAL IVP PRN (21:31)
[2019-02-05] MEDS: FAMOTIDINE 20 MG/2 ML VIAL IV SCH (21:53)
[2019-02-05] MEDS: PENICILLIN G POTASSIUM 2,500,000 UNIT in DEXTROSE 5% IN WATER 100 ML IVPB SCH ×2 (23:42)
[2019-02-06] MEDS: PENICILLIN G POTASSIUM 2,500,000 UNIT in DEXTROSE 5% IN WATER 100 ML IVPB SCH ×8 (04:18→16:34)
[2019-02-06] MEDS: LACTATED RINGERS 1,000 ML IV SCH ×4 (05:12→19:16)
--- NOTE | 2019-02-06 08:35 | P.HPOB ---
History of Present Illness H&P Date: 02/06/19 Chief Complaint: Rupture of membranes at 36-2/7 weeks' gestation This is a 28-year-old 1 para 0 woman at 36-2/7 weeks gestation who presents with spontaneous rupture of membranes at approximately 5:30 AM on 02/05/2019. She was initially uncertain whether her water had broken on and did not present to labor and delivery until later in the evening on 02/05/2019 at [facility] time rupture of membranes was confirmed. She was 1 cm dilated and not regularly yajaira. She reports clear fluid. Upon presentation she denied any regular contraction activity is or vaginal bleeding. Her record is not available the time of this dictation however she has had a uncomplicated . Group B strep status is unknown. Blood type is O+. Review of Systems All systems: negative Past Medical History Past Medical History: No Reported History Additional Past Medical History / Comment(s): Intussusception History of Any Multi-Drug Resistant Organisms: None Reported Past Surgical History: No Surgical Hx Reported Additional Past Surgical History / Comment(s): twisted bowel Past Anesthesia/Blood Transfusion Reactions: No Reported Reaction Past Psychological History: No Psychological Hx Reported Smoking Status: Never smoker Past Alcohol Use History: None Reported Past Drug Use History: None Reported - Past Family History Mother Family Medical History: Asthma, GERD/Reflux Additional Family Medical History / Comment(s): Mom has dumping syndrome. Maternal Grandma had type 2 diabetes and from bone cancer. Father Family Medical History: Hypertension Additional Family Medical History / Comment(s): Paternal grandma had kidney disease and from skin and breast cancer. Medications and Allergies Home Medications Medication Instructions Recorded Confirmed Type Pnv No.95/Ferrous Fum/Folic AC 1 tab PO HS 08/19/18 02/05/19 History [ Multivitamin Tablet] Allergies Allergy/AdvReac Type Severity Reaction Status Date / Time No Known Allergies Allergy Verified 02/05/19 18:44 Exam Vital Signs Temp Pulse Resp BP Pulse Ox 02/05/19 19:31 97.3 F L 75 18 133/86 02/05/19 18:58 96.9 F L 90 16 138/95 100 Intake and Output 02/05/19 02/06/19 02/06/19 22:59 06:59 14:59 Intake Total 600 700 Balance 600 700 Intake: Intake, IV Titration 600 700 Amount Lactated Ringers 1,000 ml 500 500 @ 125 mls/hr IV .Q8H KALYAN Rx#:[id number] Penicillin G Potassium 2, 200 500,000 unit In Dextrose 5% in Water 100 ml @ 100 mls/hr IVPB Q4H KALYAN Rx#: [id number] Penicillin G Potassium 5, 100 000,000 unit In Dextrose 5% in Water 100 ml @ 100 mls/hr IVPB ONCE STA Rx#: [id number] Other: # Voids 2 3 Weight 74.298 kg Targeted physical exam is performed. This is a visibly gravid, uncomfortable appearing female. Fundal height is consistent with gestational age. On pelvic examination the cervix is 3 cm dilated, 70% effaced, cervix is posterior behind a very low head at -1-2 station. There is some Noted and bedside ultrasound does confirm a vertex presentation. heart tones are category 1 and she is irregularly yajaira with Pitocin at 7 mU/m. Results Result Diagrams: 02/05/19 19:30 Assessment and Plan (1) premature rupture of membranes Current Visit: Yes Status: Acute Code(s): O42.919 - PRETRM ADIS ROM, UNSP TIME BETW RUPT AND ONST LABR, UNSP TRI SNOMED Code(s): 504081670 (2) 36 to 37 weeks gestation of Current Visit: Yes Status: Acute Code(s): QLV9063 - SNOMED Code(s): 283419281 Plan: This is a 28-year-old 1 para 0 woman who presents with premature rupture of membranes at 36-2/7 weeks' gestation. She's been on Pitocin augmentation throughout the night and is greater than 24 hours ruptured. She is on group B strep prophylactic antibiotics. She is now in active labor. status is currently reassuring by external monitoring. Analgesic options have been reviewed with the patient and she declines at this time. I anticipate normal spontaneous vaginal delivery.
[2019-02-06] MEDS: FAMOTIDINE 20 MG/2 ML VIAL IV SCH ×2 (09:06→22:40)
[2019-02-06] MEDS ORDERED: IBUPROFEN 600 MG TAB PO PRN (17:10)
[2019-02-06] MEDS ORDERED: WITCH HAZEL 1 EACH MED..PAD TOPICAL PRN (17:10)
[2019-02-06] MEDS ORDERED: diphenhydrAMINE 50 MG/ML 1 ML VIAL IVP PRN ×2 (17:10)
[2019-02-06] MEDS ORDERED: ZOLPIDEM 5 MG TAB PO PRN (17:10)
[2019-02-06] MEDS ORDERED: SIMETHICONE 80 MG CHEWABLE PO PRN (17:10)
[2019-02-06] MEDS ORDERED: diphenhydrAMINE 50 MG CAP PO PRN (17:10)
[2019-02-06] MEDS ORDERED: LANOLIN CREAM 5 GM TUBE TOPICAL PRN (17:10)
[2019-02-06] MEDS ORDERED: BENZOCAINE/MENTHOL SPRAY 1 GM/SPRAY AEROSOL TOPICAL PRN (17:10)
[2019-02-06] MEDS ORDERED: diphenhydrAMINE 25 MG CAP PO PRN (17:10)
[2019-02-06] MEDS ORDERED: HYDROCORTISONE 2.5% RECTAL CREAM 30 GM TUBE RECTAL PRN (17:10)
[2019-02-06] MEDS ORDERED: ACETAMINOPHEN TAB 325 MG TAB PO PRN (17:10)
[2019-02-06] MEDS ORDERED: OXYTOCIN 20 UNITS/1000 ML NS 1,000 ML IV SCH (17:15)
[2019-02-06 17:16] VITALS: RESP 16
--- NOTE | 2019-02-06 17:17 | P.PROBDLV ---
Vaginal Delivery Note - . Vaginal Delivery Note: Findings: Male in the vertex left occiput anterior position with Apgars of 9 at 1 minute and 9 at 5 minutes weighing 6 lbs. 15 oz., 07/22/1943 grams. Right labial laceration. Intact, three-vessel cord placenta that appeared calcified. EBL 150 mL's. Delivery summary: This is a 28-year-old 1 para 0 woman with an estimated due date of 03/02/2019 who presented at 36-2/7 weeks' gestation with spontaneous rupture of membranes at approximately 05 30 on 02/05/2019. She presented much later in the day to labor and delivery at which time rupture of membranes was confirmed. She was not actively yajaira and her cervix was only 1 cm dilated. She was admitted and Pitocin induction of labor was initiated. Group B strep status was unknown known therefore prophylactic antibiotics were initiated. She made essentially no progress throughout the night however by the following morning greater than 24 hours post-rupture she did began to have more regular contraction activity and was 3 cm dilated. heart tones were reassuring throughout the first stage of labor. She reached complete cervical dilation by 1615 and commenced pushing with strong maternal effort. After approximately 40 minute second stage of labor she was and was rep ositioned, prepped and draped in the modified oJey position. With additional maternal effort the head delivered from the left occiput anterior position. Nuchal cord 1 was noted and delivered through. The rest the was delivered onto the field and the nose and mouth were bulb suctioned. The infant was placed on the maternal abdomen where the cord was eventually clamped and cut. Apgars were 9 at 1 minute and 9 at 5 minutes and weight was 6 lbs. 15 oz. A right labial laceration was noted that completely transected the the right labia at approximately the 10 o'clock position. This was infused with lidocaine and was repaired with 3-0 Vicryl suture with excellent cosmetic result. The perineum was inspected and a very small first-degree laceration was noted that did not require repair. The uterus was then massaged and an intact, three-vessel cord placenta was expressed and was noted to appear calcified. The uterus was massaged and was noted to be firm at the level of the umbilicus. The patient received Pitocin following the third stage of labor. All counts were correct and both mother and were doing well post delivery in the room.
[2019-02-06] MEDS: SENNOSIDES-DOCUSATE SODIUM 1 EACH TAB PO SCH (22:37)
[2019-02-07 07:12] LABS: Basophils % (A) 0 %; Eosinophils # (A) 0.1 k/uL (0-0.7); Eosinophils % (A) 0 %; HCT 29.7 % (34.0-46.0); HGB 10.3 gm/dL (11.4-16.0); Lymphocytes # (A) 2.2 k/uL (1.0-4.8); Lymphocytes % (A) 13 %; MCH 30.1 pg (25.0-35.0); MCHC 34.6 g/dL (31.0-37.0); MCV 86.8 fL (80.0-100.0); Monocytes # (A) 1.2 k/uL (0-1.0); Monocytes % (A) 7 %; Neutrophils # (A) 13.6 k/uL (1.3-7.7); Neutrophils % (A) 78 %; Platelet Count 268 k/uL (150-450); RBC 3.42 m/uL (3.80-5.40); RDW 13.2 % (11.5-15.5); WBC 17.4 k/uL (3.8-10.6)
[2019-02-07] MEDS: SENNOSIDES-DOCUSATE SODIUM 1 EACH TAB PO SCH (08:34)
--- NOTE | 2019-02-07 08:36 | P.PNOBGVD ---
Subjective - Subjective Principal diagnosis: day 1 Interval history: Feeling sore but otherwise spell. Moderate lochia. Patient reports: Reports appetite normal, Reports voiding normally, Reports pain well controlled, Reports ambulating normally, Denies dizzy ambulation Maxwell: doing well Objective - Latest Vital Signs Latest vital signs: Vital Signs Temp Pulse Resp BP Pulse Ox 02/07/19 08:00 97.2 F L 85 16 125/77 02/07/19 04:00 98.9 F 86 16 118/70 02/07/19 00:00 99.0 F 80 16 100/59 98 02/06/19 20:00 98.1 F 102 H 16 115/69 02/06/19 19:09 90 16 119/69 02/06/19 18:39 79 16 138/85 02/06/19 18:09 104 H 16 135/80 02/06/19 17:54 100 16 118/69 02/06/19 17:39 79 16 116/66 02/06/19 17:24 87 16 119/62 02/06/19 17:09 97.6 F 94 16 136/65 Intake and Output 02/06/19 02/07/19 02/07/19 22:59 06:59 14:59 Other: # Voids 2 1 - Exam Extremities: Present: normal. Absent: edema Uterus: Present: normal - Labs Labs: Abnormal Lab Results - Last 24 Hours (Table) 02/07/19 Range/Units 06:39 WBC 17.4 H (3.8-10.6) k/uL RBC 3.42 L (3.80-5.40) m/uL Hgb 10.3 L (11.4-16.0) gm/dL Hct 29.7 L (34.0-46.0) % Neutrophils # 13.6 H (1.3-7.7) k/uL Monocytes # 1.2 H (0-1.0) k/uL Assessment and Plan (1) premature rupture of membranes Current Visit: Yes Status: Acute Code(s): O42.919 - PRETRM ADIS ROM, UNSP TIME BETW RUPT AND ONST LABR, UNSP TRI SNOMED Code(s): 100073529 (2) 36 to 37 weeks gestation of Current Visit: Yes Status: Acute Code(s): XGM9607 - SNOMED Code(s): 031649714 (3) Normal spontaneous vaginal delivery Current Visit: Yes Status: Acute Code(s): O80 - ENCOUNTER FOR FULL-TERM UNCOMPLICATED DELIVERY SNOMED Code(s): 24775125 (4) Obstetric labial laceration, delivered, current hospitalization Current Visit: Yes Status: Acute Code(s): O70.0 - FIRST DEGREE PERINEAL LACERATION DURING DELIVERY SNOMED Code(s): 897410478 Plan: 28-year-old 1 now para 1 woman day #1 status post normal spontaneous vaginal delivery after prolonged rupture of membranes. She is afebrile. No evidence of infection. Recovering well. Anticipate discharge home tomorrow.
[2019-02-07] MEDS: FAMOTIDINE 20 MG/2 ML VIAL IV SCH (16:17)
[2019-02-08] MEDS: SENNOSIDES-DOCUSATE SODIUM 1 EACH TAB PO SCH (09:22)
[2019-02-08 16:25] VITALS: BP 116/73; PULSE 76; TEMP 98
[2019-02-09] MEDS ORDERED: FAMOTIDINE 20 MG TAB PO SCH (09:00)
== END 2019-02-08 19:15 | disposition home or self-care (01) | DRG 807 ==
LOC: FBPOP 18:39 → 4FBP 18:51
PROVIDERS: ADMIT Obstetrics & Gynecology; ATTEND Obstetrics & Gynecology
PROC: 10E0XZZ Delivery of Products of Conception, External Approach (ICD-10-PCS; principal; 2019-02-06)
PROC: 0HQ9XZZ Repair Perineum Skin, External Approach (ICD-10-PCS; 2019-02-06)
PROC: 3E033VJ Introduction of Other Hormone into Peripheral Vein, Percutaneous Approach (ICD-10-PCS; 2019-02-06)
DX: O42.919 Preterm premature rupture of membranes, unspecified as to length of time between rupture and onset of labor, unspecified trimester (principal); Z37.0 Single live birth; O69.81X0 Labor and delivery complicated by cord around neck, without compression, not applicable or unspecified; O70.0 First degree perineal laceration during delivery; Z3A.37 37 weeks gestation of pregnancy; Z83.3 Family history of diabetes mellitus; Z82.49 Family history of ischemic heart disease and other diseases of the circulatory system; Z82.5 Family history of asthma and other chronic lower respiratory diseases; Z83.79 Family history of other diseases of the digestive system; Z80.8 Family history of malignant neoplasm of other organs or systems; Z80.3 Family history of malignant neoplasm of breast
CPT/HCPCS: 59025; 84112; 85025; 86850; 86900; 86901; 88307; 99213

== ENCOUNTER → 2021-09-09 | Outpatient (CLI) | payer OTHER ==
--- NOTE | 2021-09-09 15:20 | US ---
EXAMINATION TYPE: US OB<=14wk fetus twins/travag DATE OF EXAM: 09/09/2021 COMPARISON: NONE CLINICAL HISTORY: R10.31 RIGHT LOWER QUADRANT PAIN. Pain. . EXAM PERFORMED: Transvaginal (TV) and Transabdominal (TA) EXAM MEASUREMENTS: GESTATIONAL AGE / DATING Physician Established: Not yet established. Dates by LMP: (7 weeks/2 days) EDC: 04/26/2022 Dates by First Scan: This is first scan Dates by Current Scan for Baby A: (7 weeks/2 days) EDC: 04/26/2022 Dates by Current Scan for Baby B: (6 weeks/5 days) EDC: 04/30/2022 MATERNAL ANATOMY Uterus: 9.9 x 6.1 x 5.9 cm. Retroverted. Right Ovary: Not seen Left Ovary: 3.5 x 2.3 x 2.4 cm. Anechoic area seen with peripheral vascularity: cm. Post CDS / Adnexa: Fluid seen in CDS. Presence of free fluid: Yes, in CDS. Presence of corpus luteal cyst: Possible within left ovary, anechoic area seen as mentioned above. Presence of subchorionic bleed: No Presence of two separate gestational sacs: No GESTATION / SURVEY TWIN A CRL: 1.12 cm. (7 wks/ 2 days) MSD: 2.97 cm. (7 wks/ 6 days) Yolk Sac (normal less than 6mm): 2.6 mm. Heart Rate: 147 bpm Rhythm: Normal IUP: Viable IUP TWIN B CRL: 0.75 cm (6 wks/ 5 days) MSD: 2.97 cm. (7 wks/ 6days) Yolk Sac (normal less than 6mm): One yolk sac visualized. Mentioned above. Heart Rate: 149 bpm Rhythm: Normal IUP: Viable IUP Slightly limited evaluation of second pole- positioned close to wall Date of LMP: 07/20/2021 Beta HcG (if available): Not available Consider short-term follow-up. There may be better visualization with advancing gestational age. IMPRESSION: 1. Twin gestation. Separate gestational sacs could not be identified. 2. Twin A gestation 7 weeks 2 days based on crown-rump length. Cardiac activity measures 147 bpm. 3. Twin B gestation 6 weeks 5 days based on crown-rump length. Cardiac activity measures 149 bpm. 3. Moderate free fluid within the cul-de-sac. 4. Only one yolk sac was identified during this exam.
== END | disposition home or self-care (01) ==
LOC: RADUSWWP 14:17
PROVIDERS: ATTEND Obstetrics & Gynecology
DX: O26.891 Other specified pregnancy related conditions, first trimester (principal); O30.011 Twin pregnancy, monochorionic/monoamniotic, first trimester; Z3A.01 Less than 8 weeks gestation of pregnancy
CPT/HCPCS: 76801; 76802; 76817

== ENCOUNTER 2022-03-09 15:07 | Outpatient (CLI) | payer OTHER ==
[2022-03-09 16:00] LABS: Appearance,Urine Turbid (Clear); Bacteria,Urine Moderate /hpf; Bilirubin,Urine Negative (Negative); Blood,Urine Negative (Negative); Color,Urine Light Yellow; Glucose,Urine (UA) Negative (Negative); Ketones,Urine Negative (Negative); Leukocyte Esterase,Urine Large (Negative); Mucus,Urine Rare /hpf; Nitrite,Urine Negative (Negative); PH, Urine 6.5 (5.0-8.0); Protein,Urine Trace (Negative); RBC,Urine 9 /hpf (0-5); Specific Gravity,Urine 1.013 (1.001-1.035); Squamous Epithelial Cell,Urine 50 /hpf (0-4); Urobilinogen,Urine <2.0 mg/dL (<2.0); WBC,Urine 101 /hpf (0-5)
[2022-03-09 17:39] VITALS: BP 135/89; PULSE 92; RESP 16; TEMP 97.2
--- NOTE | 2022-03-14 10:20 | P.MSEPDOC ---
Presenting Problems - Arrival Data Date of Arrival on Unit: 03/09/22 Time of Arrival on Unit: 15:10 Mode of Transport: Ambulatory - Complaint OB-Reason for Admission/Chief Complaint: Possible Onset of Labor, Other Comment: r/o labor. cramping. sent from office Medical History - Information : 2 Para: 1 Term: 0 : 1 Abortions: Spontaneous or Elective: 0 Number of Living Children: 1 - Gestational Age Gestational Age by BENITA (wks/days): 33 Weeks and 1 Days - History Complications: Other Comment: hx of labor. hx of twin preg this time, only one now and hx of sga with this preg. Review of Systems - Review of Systems Constitutional: No problems Breast: No problems ENT: No problems Cardiovascular: No problems Respiratory: No problems Gastrointestinal: No problems Genitourinary: No problems Musculoskeletal: No problems Neurological: No problems Skin: No problems Vital Signs - Temperature Temperature: 97.2 F Temperature Source: Temporal Artery Scan - Pulse Right Radial Pulse Rate: 92 Pulse Assessment Method: Automatic Cuff - Respirations Respiratory Rate: 16 Oxygen Delivery Method: Room Air - Blood Pressure Right Arm Blood Pressure: 135/89 Blood Pressure Mean: 104 Blood Pressure Source: Automatic Cuff Medical Screen Scoring - Cervical Exam Membranes: Intact - Assessment - Baby A Baseline FHR: 145 NST: Reactive Physician Notification - Physician Notified Physician Notified Date: 03/09/22 Physician Notified Time: 17:00 Physician: Araceli Day Order Received: Yes (may discharge home with instructions) Maternal Triage Index - Scheduled/Requesting Priority 5 Scheduled/Requesting Priority 5: Yes Criteria Met for Priority 5: sent from office for evaluation by fine arts teacher. [facility] to see high risk for scheduled appt and u/s . to see dr turner in office next week for scheduled appt. Disposition - Disposition OB Disposition: Physician follow up in office, Discharge to home, Written follow up instructions reviewed Discharge Date: 03/09/22 Discharge Time: 17:10 I agree with the RN Medical Screening Exam: Yes Case reviewed; plan agreed upon as documented in EMR&OBIX.: Yes Diagnosis: UTI in
== END 2022-03-09 17:10 | disposition home or self-care (01) ==
LOC: FBPOP 15:07
PROVIDERS: ATTEND Obstetrics & Gynecology
DX: O60.00 Preterm labor without delivery, unspecified trimester (principal)
CPT/HCPCS: 59025; 81001; G0463; 99213

== ENCOUNTER 2022-04-27 11:16 | Inpatient (IN) | payer OTHER ==
[2022-04-27] MEDS ORDERED: LIDOCAINE 0.5% (PF) 5 MG/ML (50 ML SDV) SQ PRN (11:39)
[2022-04-27] MEDS ORDERED: TERBUTALINE 1 MG/ML VIAL SQ PRN (11:39)
[2022-04-27] MEDS: LACTATED RINGERS 1,000 ML IV SCH ×2 (11:40→20:15)
[2022-04-27] MEDS ORDERED: PENICILLIN G POTASSIUM 5,000,000 UNIT in DEXTROSE 5% IN WATER 100 ML IVPB STA ×2 (11:41)
[2022-04-27] MEDS ORDERED: OXYTOCIN 30 UNITS/500 ML NS 30 UNIT in SALINE 1 500ML.BAG IV SCH ×2 (11:45→17:30)
[2022-04-27 11:52] LABS: Basophils % (A) 0 %; Eosinophils # (A) 0.1 k/uL (0-0.7); Eosinophils % (A) 1 %; HCT 34.4 % (34.0-46.0); HGB 11.8 gm/dL (11.4-16.0); Lymphocytes # (A) 1.2 k/uL (1.0-4.8); Lymphocytes % (A) 13 %; MCHC 34.2 g/dL (31.0-37.0); MCV 87.6 fL (80.0-100.0); Mean Platelet Volume 9.3; Monocytes # (A) 0.5 k/uL (0-1.0); Monocytes % (A) 5 %; Neutrophils # (A) 7.6 k/uL (1.3-7.7); Neutrophils % (A) 79 %; Platelet Count 269 k/uL (150-450); RBC 3.93 m/uL (3.80-5.40); WBC 9.6 k/uL (3.8-10.6)
--- NOTE | 2022-04-27 13:10 | P.HPOB ---
History of Present Illness H&P Date: 04/27/22 Chief Complaint: IUGR at term This is a 31-year-old 2 para 0101 woman with an estimated due date of 04/26/2022 based on LMP consistent with first trimester ultrasound. has been complicated by severe intrauterine growth restriction diagnosed at 30 weeks. This is asymmetric with an abdominal circumference at the 3rd percentile. She had a maternal medicine referral at [facility] and recommendations for testing including weekly umbilical artery Dopplers, serial growth, NST and BHAVESH have been undertaken. These have all been reassuring. She did receive steroids at 30 weeks as well. Her ongoing evaluation status is remained reassuring however she was recommended to deliver at 37 weeks secondary to IUGR which she declined. She was scheduled for induction of labor at 39 weeks however she ultimately canceled this. Today in the office she was 40 and one sevenths weeks gestation her cervix is 3+ centimeters dilated. NST was reactive however her blood pressure was elevated at 140/90. She does agree to admission for induction of labor. Her obstetric history is significant for a previous PE and vaginal delivery at 36-2/7 weeks' gestation. This initially started as a twin in the first trimester however there was a vanishing twin. Laboratory data: Blood type O positive, antibody screen negative, rubella immune, VDRL nonreactive, hepatitis B surface antigen negative, gonorrhea and clinic cultures negative, group B strep positive Review of Systems All systems: negative Past Medical History Past Medical History: No Reported History Additional Past Medical History / Comment(s): Intussusception History of Any Multi-Drug Resistant Organisms: None Reported Past Surgical History: No Surgical Hx Reported Additional Past Surgical History / Comment(s): twisted bowel Past Anesthesia/Blood Transfusion Reactions: No Reported Reaction Smoking Status: Never smoker - Past Family History Mother Family Medical History: Asthma, GERD/Reflux Additional Family Medical History / Comment(s): Mom has dumping syndrome. Maternal Grandma had type 2 diabetes and from bone cancer. Father Family Medical History: Hypertension Additional Family Medical History / Comment(s): Paternal grandma had kidney disease and from skin and breast cancer. Medications and Allergies Home Medications Medication Instructions Recorded Confirmed Type Pnv No.95/Ferrous Fum/Folic AC 1 tab PO HS 08/19/18 04/27/22 History [ Multivitamin Tablet] Allergies Allergy/AdvReac Type Severity Reaction Status Date / Time No Known Allergies Allergy Verified 04/27/22 11:38 Exam Intake and Output 04/26/22 04/27/22 04/27/22 22:59 06:59 14:59 Other: Weight 73.936 kg This is a comfortable, visibly gravid gravid female. Targeted physical exam is performed. The abdomen is gravid with palpable contractions. Fundal height is approximately 36 cm. On pelvic examination she is 3 cm dilated 80% effaced and the vertex in the -3 station. Artificial rupture of membranes is under taken and clear fluid is noted. heart tones are category 1. Results Result Diagrams: 04/27/22 11:40 Assessment and Plan (1) Asymmetric intrauterine growth restriction (IUGR) Current Visit: Yes Status: Acute Code(s): KTG5497 - SNOMED Code(s): 377914550 (2) Term Current Visit: Yes Status: Acute Code(s): Z34.90 - ENCNTR FOR SUPRVSN OF NORMAL , UNSP, UNSP TRIMESTER SNOMED Code(s): 13598278 Plan: This is a 31-year-old 2 para 0101 woman who is admitted for induction of labor secondary to severe asymmetric intrauterine growth restriction. She has been followed with reassuring testing including the NST, BHAVESH and u mbilical artery Dopplers. Today she had an isolated elevated blood pressure 140/90 however they are normal upon admission and she has no signs or symptoms otherwise of preeclampsia. She will undergo Pitocin induction of labor with artificial rupture of membranes. She is known group B strep positive and phylactic antibiotics initiated. The patient and the father of the baby have been counseled extensively in the outpatient setting about the possible risks of intrauterine growth restriction and intolerance of labor. Currently heart tones are category 1 and close monitoring with the continuous electronic monitoring will be maintained.
[2022-04-27] MEDS ORDERED: PENICILLIN G POTASSIUM 2,500,000 UNIT in DEXTROSE 5% IN WATER 100 ML IVPB SCH ×2 (16:00)
[2022-04-27] MEDS ORDERED: diphenhydrAMINE 50 MG CAP PO PRN (17:25)
[2022-04-27] MEDS ORDERED: ACETAMINOPHEN TAB 325 MG TAB PO PRN (17:25)
[2022-04-27] MEDS ORDERED: LANOLIN CREAM 5 GM TUBE TOPICAL PRN (17:25)
[2022-04-27] MEDS ORDERED: BENZOCAINE/MENTHOL SPRAY 1 GM/SPRAY AEROSOL TOPICAL PRN (17:25)
[2022-04-27] MEDS ORDERED: HYDROCORTISONE 2.5% RECTAL CREAM 30 GM TUBE RECTAL PRN (17:25)
[2022-04-27] MEDS ORDERED: IBUPROFEN 600 MG TAB PO PRN (17:25)
[2022-04-27] MEDS ORDERED: diphenhydrAMINE 25 MG CAP PO PRN (17:25)
[2022-04-27] MEDS ORDERED: ZOLPIDEM 5 MG TAB PO PRN (17:25)
[2022-04-27] MEDS ORDERED: diphenhydrAMINE 50 MG/ML 1 ML VIAL IVP PRN ×2 (17:25)
[2022-04-27] MEDS ORDERED: SIMETHICONE 80 MG CHEWABLE PO PRN (17:25)
--- NOTE | 2022-04-27 17:25 | P.PROBDLV ---
Vaginal Delivery Note - . Vaginal Delivery Note: Readings: Male infant in the left occiput anterior position with a tight nuchal cord 1. Apgars of 9 at 1 minute and 9 at 5 minutes. Weight and measurements pending at the time of dictation. Right labial laceration. EBL 100 mL's. Delivery summary: This is a 31-year-old 2 para 0101 woman who is admitted at 40 and one sevenths weeks gestation for induction of labor secondary to severe IUGR and elevated blood pressure. has been complicated by findings of severe asymmetric IUGR with abdominal circumference consistently measuring less than the 3rd percentile since 30 weeks gestation. testing has all been reassuring. She had a single blood pressure 140 overnight D in the setting today. She was recommended in light of the severe IUGR, term status and possible gestational hypertension to proceed to induction of labor. She is known group B strep positive and was admitted with group B strep prophylactic antibiotics initiated. Pitocin induction of labor was initiated. She underwent artificial rupture of membranes and clear fluid was noted. She had a rapid progression to complete cervical dilation with overall reassuring heart tones. When she reached complete dilation she was repositioned, prepped and draped in the dorsal modified Joey position. With additional maternal effort 3 the head did crown from the left occiput anterior position. The head delivered and a tight nuchal cord was noted. I was unable to reduce this. The anterior followed by the posterior shoulders were then delivered and the rest the was delivered onto the field. Nuchal cord was reduced. Nose and mouth were bulb suctioned. was placed on the maternal abdomen. Apgars were 9 at 1 minute and 9 at 5 minutes. Weight is pending. An intact, three-vessel cord placenta with some calcifications was expressed after an approximately 5 minutes third stage of labor. The right labial laceration was inspected. The patient reports a history of a previous labial laceration with delivery that did not heal completely leaving a rent in the right labial minora. The base of this was freshened laceration and was infused with lidocaine and reapproximated with 2 interrupted sutures. The rest of the vagina and cervix were inspected and no further lacerations were noted. The uterus was massaged and was noted to be firm at the level of the umbilicus. All counts were correct and both mother and are doing well post delivery in the room.
[2022-04-27] MEDS: SENNOSIDES-DOCUSATE SODIUM 1 EACH TAB PO SCH (20:48)
[2022-04-28] MEDS: LACTATED RINGERS 1,000 ML IV SCH (06:38)
[2022-04-28 07:55] LABS: Basophils % (A) 0 %; Eosinophils # (A) 0.1 k/uL (0-0.7); Eosinophils % (A) 0 %; HCT 28.5 % (34.0-46.0); Lymphocytes # (A) 1.2 k/uL (1.0-4.8); Lymphocytes % (A) 9 %; MCH 30.4 pg (25.0-35.0); MCHC 34.4 g/dL (31.0-37.0); MCV 88.5 fL (80.0-100.0); Mean Platelet Volume 9.7; Monocytes # (A) 0.6 k/uL (0-1.0); Monocytes % (A) 4 %; Neutrophils # (A) 11.4 k/uL (1.3-7.7); Neutrophils % (A) 85 %; Platelet Count 203 k/uL (150-450); RBC 3.22 m/uL (3.80-5.40); RDW 12.7 % (11.5-15.5); WBC 13.4 k/uL (3.8-10.6)
[2022-04-28 08:09] LABS: HGB 9.8 gm/dL (11.4-16.0)
--- NOTE | 2022-04-28 08:20 | P.DS ---
Providers Date of admission: 04/27/22 11:16 Expected date of discharge: 04/28/22 Attending physician: Araceli Day Primary care physician: Stated None - Discharge Diagnosis(es) (1) Asymmetric intrauterine growth restriction (IUGR) Current Visit: Yes Status: Acute (2) Term Current Visit: Yes Status: Acute (3) Normal spontaneous vaginal delivery Current Visit: No Status: Acute (4) Obstetric labial laceration, delivered, current hospitalization Current Visit: No Status: Acute Hospital Course: This is a 31-year-old 2 now para 2 woman who is admitted at 40 and one sevenths weeks gestation secondary to induction for severe asymmetric IUGR and on elevated blood pressure. Following admission she underwent artificial rupture of membranes and Pitocin induction of labor. She received group B strep prophylactic antibiotics. Her blood pressures were stable throughout labor. status was reassuring during labor. She had a rapid on onset of labor and delivery of a liveborn male with a nuchal cord 1. Apgars were 9 at 1 minute and 9 at 5 minutes and weight was 7 lbs. 0 oz. The patient's course was unremarkable. By day #1 she was ambulating and voiding without difficulty and she was taking no pain medications. Her lochia was moderate and decreasing. She is breast-feeding successfully. Her vital signs were stable and her postoperative laboratory work within normal limits. She was therefore discharged home per her request on on day #1 with routine instructions for care and follow-up pending discharge of the baby. Patient Condition at Discharge: Good Plan - Discharge Summary New Discharge Prescriptions: No Action Pnv No.95/Ferrous Fum/Folic AC [ Multivitamin Tablet] 1 tab PO HS Discharge Medication List Pnv No.95/Ferrous Fum/Folic AC [ Multivitamin Tablet] 1 tab PO HS 08/19/18 [History] Follow up Appointment(s)/Referral(s): Araceli Day MD [STAFF PHYSICIAN] - 6 Weeks Activity/Diet/Wound Care/Special Instructions: Follow-up in the office in 6 weeks . Call with any concerning signs or symptoms including heavy vaginal bleeding, severe abdominal pain, fever greater than 101, swelling or redness of the lower extremities, foul vaginal discharge, or signs of depression. Nothing in the vagina for 6 weeks after delivery, specifically no intercourse. Discharge Disposition: HOME SELF-CARE
[2022-04-28] MEDS: SENNOSIDES-DOCUSATE SODIUM 1 EACH TAB PO SCH (08:24)
[2022-04-29] MEDS: SENNOSIDES-DOCUSATE SODIUM 1 EACH TAB PO SCH ×2 (00:32→08:19)
[2022-04-29 00:36] VITALS: RESP 16
[2022-04-29 08:21] VITALS: BP 111/66; PULSE 79; TEMP 98.8
== END 2022-04-29 14:18 | disposition home or self-care (01) | DRG 807 ==
LOC: 4FBP 11:16
PROVIDERS: ADMIT Obstetrics & Gynecology; ATTEND Obstetrics & Gynecology
PROC: 3E033VJ Introduction of Other Hormone into Peripheral Vein, Percutaneous Approach (ICD-10-PCS; principal; 2022-04-27)
PROC: 10E0XZZ Delivery of Products of Conception, External Approach (ICD-10-PCS; 2022-04-27)
PROC: 0HQ9XZZ Repair Perineum Skin, External Approach (ICD-10-PCS; 2022-04-27)
PROC: 10907ZC Drainage of Amniotic Fluid, Therapeutic from Products of Conception, Via Natural or Artificial Opening (ICD-10-PCS; 2022-04-27)
DX: O36.5930 Maternal care for other known or suspected poor fetal growth, third trimester, not applicable or unspecified (principal); Z37.0 Single live birth; R03.0 Elevated blood-pressure reading, without diagnosis of hypertension; O31.13X1 Continuing pregnancy after spontaneous abortion of one fetus or more, third trimester, fetus 1; O42.02 Full-term premature rupture of membranes, onset of labor within 24 hours of rupture; O99.824 Streptococcus B carrier state complicating childbirth; O70.0 First degree perineal laceration during delivery; O69.1XX0 Labor and delivery complicated by cord around neck, with compression, not applicable or unspecified; Z3A.40 40 weeks gestation of pregnancy; Z86.711 Personal history of pulmonary embolism; Z28.310 Unvaccinated for COVID-19
CPT/HCPCS: 85025; 86850; 86900; 86901; 88307